=== PATIENT | female | born 1960 | race Caucasian/White ===

== ENCOUNTER 2017-06-15 13:46 | Emergency (ER) | payer OTHER ==
[2017-06-15 13:57] VITALS: BP 121/75; PULSE 83; RESP 18; TEMP 97.7; O2SAT 96
--- NOTE | 2017-06-15 14:00 | EDPHY ---
H & P Stated Complaint: tree branch to L eye at approx 1100 today Time Seen by Provider: 06/15/17 13:58 - Personal History Current Tetanus/Diphtheria Vaccine: Unsure - Medical/Surgical History Hx Asthma: No Hx Chronic Respiratory Disease: No Hx Diabetes: No Hx Cardiac Disease: No Hx Renal Disease: No Hx Cirrhosis: No Hx Alcoholism: No Hx HIV/AIDS: No Hx Splenectomy or Spleen Trauma: No Other PMH: PSH: C sections, ovarian cystectomy, L ACL repair. PMH: healthy - Social History Smoking Status: Never smoked Constitutional: Initial Vital Signs Temperature (C) 36.5 C 06/15/17 13:54 Heart Rate 83 06/15/17 13:54 Respiratory Rate 18 06/15/17 13:54 Blood Pressure 121/75 H 06/15/17 13:54 O2 Sat (%) 96 06/15/17 13:54 O2 Delivery Mode Room Air Allergies/Adverse Reactions: fentanyl Allergy (Unknown, Verified 09/24/12 17:35) Home Medications: Medication Instructions Recorded NK [No Known Home Meds] 06/15/17 Medical Decision Making ED Course/Re-evaluation: CHIEF COMPLAINT: Left eye injury HISTORY OF PRESENT ILLNESS: The patient is a 57 y/o female with no significant medical history who presents with left eye pain after being struck with a branch at 11:30 today, about 2.5 hours ago. She was cutting fallen tree branches when a branch whipped up underneath her glasses and struck her left eye. She had immediate pain that has persisted. She denies vision changes or other injuries. She does not wear contacts. REVIEW OF SYSTEMS: A 10 point review of systems was performed and is negative with the exception of the elements mentioned in the history of present illness. PHYSICAL EXAM: HR, BP, O2 Sat, RR. Temp noted General Appearance: Alert, well hydrated, appropriate, and non-toxic appearing. Head: Atraumatic without scalp tenderness or obvious injury Visual Acuity: Noted from Nurse's notes. Pupils: PERRLA, EOMI, no nystagmus, no trauma, no injection. Lids: No edema or swelling Skin: No proptosis, no periorbital erythema or swelling, no vesicles Conjunctivae: Minimal left superior injection, not icteric, no discharge Cornea: Exam with slit lamp and fluorescein shows corneal abrasion at 12 o' clock Anterior chamber: Normal, no hyphema or hypopyon Posterior Chamber: No papilledema or hemorrhages. Past medical history: denies Past surgical history: , ovarian cystectomy, left ACL repair Family history: noncontributory Social history: Lives in [place]. . Employed. DIFFERENTIAL DIAGNOSIS: The differential diagnosis for the patient's symptoms included but was not limited to corneal abrasion, eye foreign body, globe injury , conjunctivitis. MEDICAL DECISION MAKING: This is a healthy 57 y/o female who presents with left eye pain secondary to being struck with a tree branch today. She has a corneal abrasion located at 12 o'clock on fluorescein exam. Her pain is well-controlled with proparacaine drops and PO ibuprofen. She will be discharged with Ocuflox eye drops and referral to ophthalmology for follow up. Return precautions discussed. She is comfortable with this plan. Departure - Departure Disposition: Home, Routine, Self-Care Clinical Impression: Corneal abrasion, left Qualifiers: Encounter type: initial encounter Qualified Code(s): S05.02XA - Injury of conjunctiva and corneal abrasion without foreign body, left eye, initial encounter Condition: Good Instructions: Corneal Abrasion (ED) Additional Instructions: 1. Use Ocuflox antibiotic drops as directed. Apply 1 drop in affected eye every 4 hours for 4-5 days. 2. Use diluted proparacaine as directed when needed for pain. Apply 1 drop to left eye every 2 hours as needed. 3. Follow up with your payroll assistant in 2-3 days. 4. Return to the ED for vision changes, severe pain, fever, or other worsening of condition. Referrals: Haresh Vigil MD [Medical Doctor] - As per Instructions Report Scribed for: Junaid Livingston Report Scribed by: Melissa Spencer Date of Report: 06/15/17 Time of Report: 14:11
[2017-06-15] MEDS ORDERED: FLUORESCEIN SODIUM 1 MG STRIP OP ONE (14:02)
[2017-06-15] MEDS ORDERED: PROPARACAINE 0.5% 15 ML OPHT DROP ONE ×2 (14:02→14:21)
== END 2017-06-15 14:31 | disposition home or self-care (01) ==
DX: S05.02XA Injury of conjunctiva and corneal abrasion without foreign body, left eye, initial encounter (principal); W22.8XXA Striking against or struck by other objects, initial encounter

== ENCOUNTER → 2018-01-29 | Outpatient (CLI) | payer OTHER | LOC: FIMAGING 08:19 | PROVIDERS: ATTEND Nurse Practitioner Adult Health | DX: Z12.31 Encounter for screening mammogram for malignant neoplasm of breast (principal) ==